=== PATIENT | female | born 1980 | race Two or more races ===

== ENCOUNTER 2017-05-28 03:07 | Inpatient (IN) | payer BC, OTHER ==
[2017-05-28] VITALS (24 sets, daily range): BP systolic 90–113; BP diastolic 45–69
[~2017-05-28] VITALS: Ht 154.9 cm; Wt 68.1 kg
[2017-05-28] MEDS ORDERED: IBUPROFEN 600 MG TAB PO ONE ×2 (03:30→04:45)
[2017-05-28] MEDS ORDERED: ACETAMINOPHEN 500 MG TAB PO ONE ×2 (03:30→04:45)
[2017-05-28] MEDS ORDERED: PIPERACILLIN-TAZOB 3.375GM 50 ML IV ONE (03:42)
[2017-05-28] MEDS ORDERED: VANCOMYCIN 1GM/250ML 250 ML IV ONE ×2 (03:42→04:45)
[2017-05-28] MEDS ORDERED: SODIUM CHLORIDE 0.9% 2,200 ML IV ONE (03:45)
[2017-05-28 04:05] LABS: Basophils # (auto) 0 uL; Eosinophils # (auto) 0 uL; Lymphocytes # (auto) 0.2 uL; Mean Platelet Volume 9.1 fL (6.9-10.8); Monocytes # (auto) 0 uL; Monocytes % (auto) 0.6 % (0.0-12.0); Neutrophils # (auto) 1.1 uL
[2017-05-28 04:07] LABS: Basophils % (auto) 0.6 % (0.0-2.0); Hematocrit 31.9 % (36.0-46.0); Mean Corpuscular Hemoglobin 24.6 pg (28.0-32.0); Mean Corpuscular Hgb Conc. 31.2 g/dL (32.0-36.0); Mean Corpuscular Volume 78.7 fL (80.0-100.0); Neutrophils % (auto) 83.8 % (37.0-80.0); Nucleated Red Blood Cells % 0.3 %; Platelet Count (auto) 148 10^3/uL (140-450); Red Cell Distribution Width 16.6 % (11.8-14.3)
[2017-05-28 04:12] LABS: White Blood Cell 1.3 10^3/uL (4.4-10.8)
[2017-05-28 04:23] LABS: Lactic Acid w/Reflex 5.6 mmol/L (0.4-2.0)
[2017-05-28 04:30] LABS: Albumin 2.9 g/dL (3.4-5.0); BUN/Creatinine Ratio 10.8; Bilirubin, Total 1.1 mg/dL (0.2-1.0); Calcium 7.6 mg/dL (8.5-10.1); Potassium 3.5 mmol/L (3.5-5.1); Total Protein 6.7 g/dL (6.4-8.2)
[2017-05-28 04:35] LABS: INR 1.16 (0.9-1.15); Partial Thromboplastin Time 26.3 sec (22.64-33.71); Prothrombin Time 12.7 sec (9.37-12.3)
[2017-05-28 04:48] LABS: REFLEX LACTIC ACID YES OR NO YES
[2017-05-28 04:51] LABS: Urine Bilirubin Negative (Negative); Urine Blood TRACE /uL (Negative); Urine Color Yellow (Yellow); Urine Glucose Normal (Normal); Urine Ketone Negative (Negative); Urine Nitrite Negative (Negative); Urine RBC 1 /hpf (0 - 4); Urine Squamous Epithelial Cell FEW /hpf (<5); Urine Urobilinogen Normal (Negative); Urine pH 6.5 (5.0-8.0)
[2017-05-28 05:12] LABS: Fibrinogen 367.9 mg/dL (177-375)
[2017-05-28] MEDS ORDERED: NOREPINEPHRINE 8 MG/250ML KIT 250 ML IV ONE (05:15)
[2017-05-28] MEDS: PIPERACILLIN-TAZO 4.5GM 100 ML IV SCH ×3 (05:20→22:00)
[2017-05-28] MEDS: NOREPINEPHRINE 8 MG/250ML KIT 250 ML IV SCH ×2 (05:22→22:42)
[2017-05-28] MEDS ORDERED: SODIUM CHLORIDE 0.9% 1,000 ML IV ONE ×2 (06:00→07:00)
[2017-05-28] MEDS ORDERED: MORPHINE SULF INJ 2 MG/ML SYRINGE 1ML IV PRN (06:30)
[2017-05-28] MEDS ORDERED: NITROGLYCERIN 0.4 MG SL TAB SL PRN (06:30)
[2017-05-28] MEDS ORDERED: IOHEXOL 350 MG/ML 100ML IJ ONE (07:07)
[2017-05-28] MEDS ORDERED: SODIUM CHLORIDE 0.9% 1,000 ML IV SCH ×3 (07:45→12:40)
[2017-05-28] MEDS ORDERED: VANCOMYCIN 1GM/250ML 250 ML IV SCH ×2 (08:00→10:00)
[2017-05-28 08:23] LABS: Platelet Estimate Adequate
[2017-05-28 08:25] LABS: Burr Cells FEW; Hypochromia Slight; Microcytosis Slight; Ovalocytes FEW
[2017-05-28] MEDS: VANCOMYCIN 1GM/250ML 250 ML IV SCH ×2 (09:02→21:00)
[2017-05-28 10:04] LABS: Lactic Acid w/Reflex 2.3 mmol/L (0.4-2.0)
[2017-05-28 10:09] LABS: REFLEX LACTIC ACID YES OR NO NO
[2017-05-28] MEDS ORDERED: PANTOPRAZOLE 40 MG TAB PO ONE (10:30)
[2017-05-28] MEDS ORDERED: D5W/SOD CHL 0.45%/KCL 20MEQ 1,000 ML IV ONE (13:15)
[2017-05-28 19:09] LABS: Lactic Acid w/Reflex 2.8 mmol/L (0.4-2.0)
[2017-05-28 19:37] LABS: REFLEX LACTIC ACID YES OR NO YES
[2017-05-29] VITALS (55 sets, daily range): BP systolic 84–145; BP diastolic 43–112
[2017-05-29] MEDS ORDERED: VANCOMYCIN 1GM/250ML 250 ML IV ONE (00:48)
[2017-05-29 04:06] LABS: Basophils # (auto) 0.1 uL; Hematocrit 27.3 % (36.0-46.0); Hemoglobin 8.6 g/dL (12.2-16.2); Mean Corpuscular Hemoglobin 24.5 pg (28.0-32.0); Monocytes # (auto) 0.9 uL; White Blood Cell 19.5 10^3/uL (4.4-10.8)
[2017-05-29 04:09] LABS: Basophils % (auto) 0.4 % (0.0-2.0); Eosinophils # (auto) 0 uL; Eosinophils % (auto) 0.2 % (0.0-7.0); Lymphocytes # (auto) 1.8 uL; Lymphocytes % (auto) 9.4 % (10.0-50.0); Mean Corpuscular Hgb Conc. 31.7 g/dL (32.0-36.0); Mean Corpuscular Volume 77.3 fL (80.0-100.0); Mean Platelet Volume 9.5 fL (6.9-10.8); Monocytes % (auto) 4.4 % (0.0-12.0); Neutrophils # (auto) 16.7 uL; Neutrophils % (auto) 85.6 % (37.0-80.0); Platelet Count (auto) 139 10^3/uL (140-450); Red Cell Distribution Width 16.3 % (11.8-14.3)
[2017-05-29 04:30] LABS: Albumin 2.4 g/dL (3.4-5.0); BUN/Creatinine Ratio 11.5; Bilirubin, Total 0.8 mg/dL (0.2-1.0); Calcium 6.9 mg/dL (8.5-10.1); Potassium 3.1 mmol/L (3.5-5.1); Total Protein 5.7 g/dL (6.4-8.2)
[2017-05-29] MEDS: PIPERACILLIN-TAZO 4.5GM 100 ML IV SCH ×3 (06:13→22:29)
[2017-05-29] MEDS ORDERED: SODIUM CHLORIDE 0.9% 1,000 ML IV ONE (06:30)
[2017-05-29] MEDS ORDERED: SUCCINYLCHOLINE CHLORIDE 20 MG/ML 10ML VIAL IV ONE (06:43)
[2017-05-29] MEDS ORDERED: LIDOCAINE 1% HCL (LOCAL ANESTH.) INJ 20ML MDV ONE (06:43)
[2017-05-29] MEDS ORDERED: POVIDONE IODINE 10 % TOPICAL OINT 30GM TOP ONE (06:47)
[2017-05-29] MEDS ORDERED: CALCIUM CHL 100MG/ML 500 MG in D5W 5% 100 ML IV ONE (07:15)
[2017-05-29 07:23] LABS: INR 1.05 (0.9-1.15); Partial Thromboplastin Time 29.1 sec (22.64-33.71); Prothrombin Time 11.4 sec (9.37-12.3)
[2017-05-29] MEDS ORDERED: MIDAZOLAM HCL 1MG/1ML-2 ML VIAL ONE ×2 (07:26→09:15)
[2017-05-29] MEDS ORDERED: ROCURONIUM 10MG/ML 10ML VIAL IV ONE (07:26)
[2017-05-29] MEDS ORDERED: fentaNYL CITRATE 10 ML ONE (07:26)
[2017-05-29] MEDS ORDERED: ETOMIDATE (2MG/ML) 20ML VIAL IV ONE (07:26)
[2017-05-29] MEDS ORDERED: KETAMINE HCL 1 ML ONE (07:33)
[2017-05-29] MEDS ORDERED: HEPARIN SODIUM (PORCINE) 5000 UNITS/ML 1ML VIAL ONE (07:39)
[2017-05-29] MEDS ORDERED: HEPARIN 1,000 UNITS/ml 1ML VIAL ONE (07:39)
[2017-05-29] MEDS ORDERED: HYDROmorphone HCL 2 MG/ML VL ONE (09:15)
[2017-05-29] MEDS ORDERED: PANTOPRAZOLE 40 MG TAB PO SCH (10:00)
[2017-05-29 10:21] LABS: Allen Test No; Base Excess -8.2 mmol/L (-2.0-2.0); Blood 02Sat 98.2 % (96-100); Blood COHb 0.3 % (0.5-1.5); Blood MetHb 0.4 % (0.0-1.5); HCO3 17.3 mmol/L (22-26.0); HHb 1.8 % (0.0-5.0); MODE VENT - A/C; O2Hb 97.5 % (94.0-97.0); PCO2 35.7 mmHg (35.0-45.0); PCO2(T) 35.7 mmHg (35.0-45.0); PO2 161.4 mmHg (80.0-100.0); PO2(T) 161.4 mmHg (80.0-100.0); Sample Type Arterial; pH 7.304 (7.350-7.450)
[2017-05-29] MEDS ORDERED: SODIUM CHLORIDE 0.9% 1,000 ML IV SCH (10:30)
[2017-05-29] MEDS: VANCOMYCIN 1GM/250ML 250 ML IV SCH ×2 (10:33→21:19)
[2017-05-29] MEDS ORDERED: HYDROcodone-ACET 5/325MG TAB PO PRN (10:45)
[2017-05-29] MEDS ORDERED: ONDANSETRON HCL 4 MG/2 ML VIAL IV PRN (10:45)
[2017-05-29] MEDS ORDERED: HYDROmorphone HCL 2 MG/ML VL IV PRN (10:45)
[2017-05-29 11:55] LABS: Allen Test No; Base Excess -8.1 mmol/L (-2.0-2.0); Blood 02Sat 98.2 % (96-100); Blood MetHb 0.4 % (0.0-1.5); HCO3 18.6 mmol/L (22-26.0); HHb 1.8 % (0.0-5.0); MODE VENT - CPAP; O2Hb 97.8 % (94.0-97.0); PCO2 43.1 mmHg (35.0-45.0); PCO2(T) 43.1 mmHg (35.0-45.0); PIP 14; PO2 151.3 mmHg (80.0-100.0); PO2(T) 151.3 mmHg (80.0-100.0); Pressure Support 8; Sample Type Arterial; Spont Vt 476; pH 7.254 (7.350-7.450)
[2017-05-29] MEDS: PANTOPRAZOLE 40 MG/10 ML VIAL IV SCH (14:00)
[2017-05-29 14:44] LABS: Allen Test No; Base Excess -8.1 mmol/L (-2.0-2.0); Blood 02Sat 97.6 % (96-100); Blood COHb 0.3 % (0.5-1.5); Blood MetHb 0.3 % (0.0-1.5); HCO3 17.9 mmol/L (22-26.0); HHb 2.4 % (0.0-5.0); MODE VENT - CPAP; PCO2 38.4 mmHg (35.0-45.0); PCO2(T) 38.4 mmHg (35.0-45.0); PO2 123.7 mmHg (80.0-100.0); PO2(T) 123.7 mmHg (80.0-100.0); Pressure Support 8; Sample Type Arterial; pH 7.287 (7.350-7.450)
[2017-05-29] MEDS: SODIUM BICARB 50ML SYR 50 ML in SOD CHL 0.45% 1,000 ML IV SCH (16:30)
[2017-05-30] VITALS (22 sets, daily range): BP systolic 93–135; BP diastolic 53–76
[2017-05-30] MEDS: SODIUM BICARB 50ML SYR 50 ML in SOD CHL 0.45% 1,000 ML IV SCH ×2 (00:39→09:56)
[2017-05-30] MEDS: ACETAMINOPHEN 325 MG TAB PO PRN ×2 (01:35→23:14)
[2017-05-30 04:06] LABS: Basophils # (auto) 0.1 uL; Basophils % (auto) 0.5 % (0.0-2.0); Eosinophils # (auto) 0 uL; Eosinophils % (auto) 0.4 % (0.0-7.0); Hemoglobin 8.8 g/dL (12.2-16.2); Lymphocytes # (auto) 1.5 uL; Monocytes # (auto) 0.7 uL; Monocytes % (auto) 6.8 % (0.0-12.0); Neutrophils # (auto) 8.7 uL
[2017-05-30 04:10] LABS: Hematocrit 27.3 % (36.0-46.0); Lymphocytes % (auto) 13.2 % (10.0-50.0); Mean Corpuscular Hemoglobin 25.3 pg (28.0-32.0); Mean Corpuscular Hgb Conc. 32.3 g/dL (32.0-36.0); Mean Corpuscular Volume 78.3 fL (80.0-100.0); Mean Platelet Volume 9.6 fL (6.9-10.8); Neutrophils % (auto) 79.1 % (37.0-80.0); Platelet Count (auto) 113 10^3/uL (140-450)
[2017-05-30 04:31] LABS: Albumin 2.1 g/dL (3.4-5.0); BUN/Creatinine Ratio 6.2; Bilirubin, Total 0.6 mg/dL (0.2-1.0); Calcium 6.9 mg/dL (8.5-10.1); Potassium 3.1 mmol/L (3.5-5.1)
[2017-05-30] MEDS: NOREPINEPHRINE 8 MG/250ML KIT 250 ML IV SCH (05:22)
[2017-05-30] MEDS: PIPERACILLIN-TAZO 4.5GM 100 ML IV SCH (06:03)
[2017-05-30] MEDS ORDERED: VANCOMYCIN 1GM/250ML 250 ML IV SCH (07:00)
[2017-05-30] MEDS: PANTOPRAZOLE 40 MG/10 ML VIAL IV SCH (09:55)
[2017-05-30] MEDS ORDERED: POTASSIUM CHL 20 Meq TABLET PO ONE (10:45)
[2017-05-30] MEDS: SODIUM CHLORIDE 0.9% 1,000 ML IV SCH (12:48)
[2017-05-30] MEDS: cefTRIAXone 1GM/10ml IVPUSH 10 ML IV SCH (12:51)
[2017-05-31] MEDS: SODIUM CHLORIDE 0.9% 1,000 ML IV SCH ×2 (01:20→15:13)
[2017-05-31 07:33] LABS: Basophils # (auto) 0 uL; Basophils % (auto) 0.5 % (0.0-2.0); Eosinophils # (auto) 0.1 uL; Mean Platelet Volume 9.5 fL (6.9-10.8); Monocytes # (auto) 0.5 uL; White Blood Cell 8.6 10^3/uL (4.4-10.8)
[2017-05-31 07:35] LABS: Eosinophils % (auto) 1.1 % (0.0-7.0); Hematocrit 31.5 % (36.0-46.0); Lymphocytes # (auto) 1.4 uL; Lymphocytes % (auto) 16.9 % (10.0-50.0); Mean Corpuscular Hgb Conc. 31.7 g/dL (32.0-36.0); Mean Corpuscular Volume 78.7 fL (80.0-100.0); Monocytes % (auto) 6.4 % (0.0-12.0); Neutrophils # (auto) 6.4 uL; Neutrophils % (auto) 75.1 % (37.0-80.0); Platelet Count (auto) 138 10^3/uL (140-450); Red Cell Distribution Width 17.3 % (11.8-14.3)
[2017-05-31 07:57] LABS: Albumin 2.1 g/dL (3.4-5.0); BUN/Creatinine Ratio 4.7; Calcium 7.6 mg/dL (8.5-10.1); Potassium 3.1 mmol/L (3.5-5.1)
[2017-05-31 08:00] LABS: Bilirubin, Total 0.5 mg/dL (0.2-1.0); Total Protein 5.4 g/dL (6.4-8.2)
[2017-05-31 09:16] VITALS: BP 122/76
[2017-05-31] MEDS: PANTOPRAZOLE 40 MG/10 ML VIAL IV SCH (10:04)
[2017-05-31] MEDS: cefTRIAXone 1GM/10ml IVPUSH 10 ML IV SCH (10:05)
[2017-05-31 12:30] VITALS: BP 109/74
[2017-05-31] MEDS ORDERED: POTASSIUM CHL 20 Meq TABLET PO ONE (12:45)
[2017-05-31 17:06] VITALS: BP 114/74
[2017-05-31 21:24] VITALS: BP 125/82
[2017-06-01] MEDS: SODIUM CHLORIDE 0.9% 1,000 ML IV SCH ×2 (03:52→17:20)
[2017-06-01 04:36] VITALS: BP 121/71
[2017-06-01 05:56] LABS: Basophils # (auto) 0.1 uL; Basophils % (auto) 0.6 % (0.0-2.0); Eosinophils # (auto) 0.1 uL; Monocytes # (auto) 0.9 uL; Neutrophils # (auto) 6.6 uL
[2017-06-01 05:59] LABS: Eosinophils % (auto) 1.4 % (0.0-7.0); Hematocrit 28.5 % (36.0-46.0); Hemoglobin 9.3 g/dL (12.2-16.2); Lymphocytes # (auto) 1.8 uL; Lymphocytes % (auto) 18.8 % (10.0-50.0); Mean Corpuscular Hemoglobin 25.5 pg (28.0-32.0); Mean Corpuscular Hgb Conc. 32.6 g/dL (32.0-36.0); Mean Corpuscular Volume 78.4 fL (80.0-100.0); Mean Platelet Volume 9.3 fL (6.9-10.8); Monocytes % (auto) 9.1 % (0.0-12.0); Neutrophils % (auto) 70.1 % (37.0-80.0); Platelet Count (auto) 129 10^3/uL (140-450); Red Cell Distribution Width 16.8 % (11.8-14.3); White Blood Cell 9.4 10^3/uL (4.4-10.8)
[2017-06-01 06:30] LABS: BUN/Creatinine Ratio 2.3; Calcium 7.5 mg/dL (8.5-10.1); Magnesium 1.9 mg/dL (1.6-2.6); Phosphorus 2.5 mg/dL (2.5-4.90); Potassium 3.1 mmol/L (3.5-5.1)
[2017-06-01 09:00] VITALS: BP 130/77
[2017-06-01] MEDS: PANTOPRAZOLE 40 MG/10 ML VIAL IV SCH (10:03)
[2017-06-01] MEDS: cefTRIAXone 1GM/10ml IVPUSH 10 ML IV SCH (10:04)
[2017-06-01] MEDS ORDERED: CEFI400C OR (10:13)
[2017-06-01] MEDS ORDERED: POTASSIUM CHL 20 Meq TABLET PO ONE (10:30)
[2017-06-01 13:00] VITALS: BP 124/82
== END 2017-06-01 19:50 | disposition home or self-care (01) | DRG 853 ==
LOC: EDBD 03:07 → ER 03:13 → TELE 03:14 → ICU WEST 16:19 → TELE-WESTW 05-30 22:55
PROVIDERS: ADMIT Nurse Practitioner Family; ATTEND Nurse Practitioner Acute Care
PROC: 30233N1 Transfusion of Nonautologous Red Blood Cells into Peripheral Vein, Percutaneous Approach (ICD-10-PCS; 2017-05-28)
PROC: 0FT44ZZ Resection of Gallbladder, Percutaneous Endoscopic Approach (ICD-10-PCS; principal; 2017-05-29 08:00)
DX: A41.51 Sepsis due to Escherichia coli [E. coli] (principal); R65.21 Severe sepsis with septic shock; K80.10 Calculus of gallbladder with chronic cholecystitis without obstruction; N39.0 Urinary tract infection, site not specified; D64.9 Anemia, unspecified; E66.9 Obesity, unspecified; K52.9 Noninfective gastroenteritis and colitis, unspecified; F17.210 Nicotine dependence, cigarettes, uncomplicated; D72.819 Decreased white blood cell count, unspecified; Z16.24 Resistance to multiple antibiotics; Z80.7 Family history of other malignant neoplasms of lymphoid, hematopoietic and related tissues; Z80.8 Family history of malignant neoplasm of other organs or systems; Z82.49 Family history of ischemic heart disease and other diseases of the circulatory system; Z87.440 Personal history of urinary (tract) infections
CPT/HCPCS: 36415; 36600; 71010; 71275; 74176; 76705; 80048; 80053; 80202; 80307; 81001; 81025; 82550; 82805; 83605; 83735; 84100; 84443; 84484; 85025; 85379; 85384; 85610; 85730; 86141; 86850; 86900; 86901; 86920; 87040; 87070; 87075; 87077; 87081; 87086; 87088; 87186; 87205; 93005; 93970; 93971; 94002; 96361; 96365; 96366; 99291; C9113; J0330; J2001; J2250; J2405; J2543; J7060

== ENCOUNTER 2018-04-28 01:10 | Emergency (ER) | payer SELFPAY ==
[~2018-04-28] VITALS: Ht 154.9 cm; Wt 61.2 kg
[~2018-04-28 01:10] MED LIST: CEFI400C OR
[2018-04-28] MEDS ORDERED: MORPHINE SULFATE 4 MG/ML SYR/VIAL IV ONE (01:30)
[2018-04-28] MEDS ORDERED: ONDANSETRON HCL 4 MG/2 ML VIAL IV ONE (01:30)
[2018-04-28] MEDS ORDERED: MORPHINE SULFATE 4 MG/ML SYR/VIAL ONE (01:32)
[2018-04-28] MEDS ORDERED: ONDANSETRON HCL 4 MG/2 ML VIAL ONE (01:32)
[2018-04-28] MEDS ORDERED: ETOMIDATE (2MG/ML) 20ML VIAL IV ONE (02:15)
[2018-04-28 04:06] VITALS: BP 101/65
== END 2018-04-28 04:58 | disposition home or self-care (01) ==
LOC: ER 01:11
DX: S43.005A Unspecified dislocation of left shoulder joint, initial encounter (principal); F17.210 Nicotine dependence, cigarettes, uncomplicated; Z90.49 Acquired absence of other specified parts of digestive tract; X58.XXXA Exposure to other specified factors, initial encounter; Y93.89 Activity, other specified; Y99.8 Other external cause status; Y92.89 Other specified places as the place of occurrence of the external cause
CPT/HCPCS: 23650; 73020; 73030; 96374; 96375; 99152; 99285; J2270; J2405; J7030